=== PATIENT | female | born 1940 | race Caucasian/White ===

== ENCOUNTER 2016-11-11 03:06 | Inpatient (IN) | payer OTHER, BC ==
[~2016-11-11] VITALS: Ht 172.7 cm; Wt 80.9 kg
[~2016-11-11 03:06] MED LIST: AMLODIPINE BESY10 MG PO; ASPIR 8181 M1 PO; COZAAR100 MG PO; DIOVAN320 MG PO; FISH OIL 1,0001 EAC7 PO; LEVAQUIN750 MG PO; LEVOTHYROXINE25 MCG PO; LIVALO2 MG PO; LOPRESSOR100 M1 PO; METOPROLOL SUC100 MG PO; OMEPRAZOLE20 MG PO; OMEPRAZOLE40 M1 PO; PLAVIX75 MG PO; PRESERVISION T1 EACH PO; PROCARDIA XL30 MG PO; VITAMIN D5000 INTUN PO; VITAMIN D5000 UNIT PO; WELCHOL625 MG PO
[2016-11-11 04:22] LABS: HEMATOCRIT 39.1 % (36.0-46.0); MCH 28.9 PG (29.0-34.0); MCHC 33.5 G/DL (30.0-36.0); MEAN PLAT.VOLUME 9.4 uM^3 (9.5-12.4); PLATELET COUNT 399 K/uL (156-360); RBC DIS.WIDTH-CV 13.7 % (11.8-14.6); RBC DIS.WIDTH-SD 42.5 % (39-53); RED BLOOD COUNT 4.53 M/uL (3.80-5.20)
[2016-11-11 04:24] LABS: EOSINOPHIL (%) 0.3 % (0-5); EOSINOPHIL COUNT 0.1 K/uL (0-0.3); IMMATURE GRANULOCYTE (%) 0.3 % (0.0-0.7); IMMATURE GRANULOCYTE COUNT 0.4 K/uL; LYMPHOCYTE COUNT 1.2 K/uL (1.0-2.8); MCV 86.3 FL (83-99); MONOCYTE (%) 10.9 % (3-12); MONOCYTE COUNT 1.7 K/uL (0-0.8); NEUTROPHIL (%) 80.8 % (45-76); NEUTROPHIL COUNT 12.5 K/uL (1.8-6.4); WHITE BLOOD COUNT 15.4 K/uL (4.1-10.2)
[2016-11-11 04:30] LABS: CHLORIDE 99 mEq/L (99-109); POTASSIUM 4.6 mEq/L (3.7-5.4); SODIUM 130 mEq/L (136-147)
[2016-11-11 04:32] LABS: GLUCOSE 161 mg/dL (70-99)
[2016-11-11 04:33] LABS: ANION GAP 12 MEQ/L (2-14)
[2016-11-11 04:34] LABS: TOTAL BILIRUBIN 0.5 mg/dL (0.0-1.0)
[2016-11-11 04:36] LABS: ALKALINE PHOSPHATASE 61 IU/L (3-129); GFR ESTIMATE (CALCULATED) 26 mL/min/
[2016-11-11 04:37] LABS: UREA NITROGEN (BUN) 33 mg/dL (9-23)
[2016-11-11 04:39] LABS: LIPASE 48 U/L (1.0-51.0)
[2016-11-11 05:04] LABS: INFLUENZA A VIRAL ANTIGEN NEGATIVE; INFLUENZA B VIRAL ANTIGEN NEGATIVE
[2016-11-11] MEDS ORDERED: LIVALO4 MG PO (07:20)
[2016-11-11] MEDS ORDERED: FLONASE16 G1 BOTH NARES (07:23)
[2016-11-11 08:12] LABS: ADD MIUA? NO; BILIRUBIN NEGATIVE; BLOOD NEGATIVE; COLOR YELLOW ((YELLOW)); GLUCOSE (STRIP) NEGATIVE; KETONES NEGATIVE; LEUKOCYTES NEGATIVE; NITRITE NEGATIVE; PROTEIN (STRIP) NEGATIVE; SPECIFIC GRAVITY 1.012 (1.000-1.030); UCUL ADDED? NO; UROBILINOGEN 0.2 MG/DL (0.2-1.0)
[2016-11-11 09:09] VITALS: BP 117/58
[2016-11-11 11:25] VITALS: BP 119/58
[2016-11-11 15:38] VITALS: BP 155/69
[2016-11-11 19:40] VITALS: BP 151/69
[2016-11-11 23:51] VITALS: BP 134/68
[2016-11-12 03:41] VITALS: BP 134/68
[2016-11-12 08:02] VITALS: BP 129/54
[2016-11-12 08:07] LABS: ANION GAP 8 MEQ/L (2-14); CHLORIDE 104 MEQ/L (99-109); GFR ESTIMATE (CALCULATED) 36 mL/min/; GLUCOSE 110 mg/dL (70-99); POTASSIUM 5.3 MEQ/L (3.7-5.4); SAMPLE HEMOLYSIS CHECK 0; SAMPLE ICTERIC CHECK 0; SAMPLE LIPEMIA CHECK 0; SODIUM 135 MEQ/L (136-147); UREA NITROGEN (BUN) 26 mg/dL (9-23)
[2016-11-12 09:31] LABS: Estimated Average Glucose 137 mg/dL (70-123); HEMOGLOBIN A1c (GLYCOHEMOGLOB) 6.4 % HGB (Below 5.7)
[2016-11-12 10:46] VITALS: BP 131/64
[2016-11-12] MEDS ORDERED: ACETAMINOPHEN-1 EAC1 PO (11:10)
[2016-11-12] MEDS ORDERED: CEFUROXIME500 MG PO (11:10)
== END 2016-11-12 13:48 | disposition home or self-care (01) | DRG 153 ==
LOC: EME → EDBD 03:06 → EDOF 07:56 → 2EAST 08:45
PROVIDERS: Emergency Medicine; Hospitalist
DX: H66.012 Acute suppurative otitis media with spontaneous rupture of ear drum, left ear (principal); H70.002 Acute mastoiditis without complications, left ear; E87.1 Hypo-osmolality and hyponatremia; C85.90 Non-Hodgkin lymphoma, unspecified, unspecified site; H92.12 Otorrhea, left ear; I10 Essential (primary) hypertension; I25.10 Atherosclerotic heart disease of native coronary artery without angina pectoris; Z95.2 Presence of prosthetic heart valve; Z90.81 Acquired absence of spleen; Z95.5 Presence of coronary angioplasty implant and graft; Z82.49 Family history of ischemic heart disease and other diseases of the circulatory system
CPT/HCPCS: 70450; 71010; 80048; 80053; 81003; 83036; 83605; 83690; 85025; 87040; 87502; 87651 90; 93005; 99281; 99285; J0696; J2405; J3370; J7030; J7050